=== PATIENT | male | born 1975 | race Caucasian/White ===

== ENCOUNTER → 2020-01-07 15:28 | Outpatient (CLI) | payer MEDICAID, SELFPAY ==
--- NOTE | 2020-01-07 15:31 | XR_ITS ---
PROCEDURE: XR FOOT WT BEARING RT 3V CLINICAL INDICATION: inversion of foot COMPARISON: No exams were available for comparison FINDINGS: There is normal alignment. No fracture or dislocation is evident. There is an old fracture of the mid to distal shaft of the 5th metatarsal with abundant callus formation. There are mild osteoarthritic changes of the 1st metatarsophalangeal joint. A bony hypertrophic changes are present involving the anterior aspect of the distal tibia. 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
--- NOTE | 2020-01-07 15:31 | XR_ITS ---
PROCEDURE: XR FOOT WT BEARING LT 3V CLINICAL INDICATION: inversion of foot Pain COMPARISON: No exams were available for comparison FINDINGS: There is an old fracture involving the 2nd metatarsal with a prominent callus formation. A bone plate is present at the proximal aspect of the 1st metatarsal. There is good alignment. There is a type 3 os navicularis. Moderate pes planus noted. IMPRESSION: pes planus with chronic changes Dictated by: Min Ortiz MD 01/07/2020 19:11 Electronically signed by Min Ortiz MD in [facility] 01/07/2020 19:12
== END ==
PROVIDERS: PCP Family Medicine; Visit Provider Podiatrist
DX: M79.672 Pain in left foot (principal); M79.671 Pain in right foot
CPT/HCPCS: 73630

== ENCOUNTER → 2020-07-07 08:50 | Outpatient (CLI) | payer MEDICAID, SELFPAY ==
--- NOTE | 2020-07-07 08:51 | XR_ITS ---
PROCEDURE: XR DEXA AXIAL SKELETON CLINICAL HISTORY: recurrent stress fx COMPARISON: No exams were available for comparison FINDINGS: The right hip BMD is 0.798 with a T-score of -1.0. The left hip BMD is 0.835 with a T-score of -0.7. The lumbar spine BMD is 1.046 with a T-score of -0.4. IMPRESSION: This patient is considered normal according to the [employer] criteria. Fracture risk is low. Dictated by: Min Ortiz MD 07/07/2020 10:00 Min Ortiz MD in [facility] 07/07/2020 10:00
== END ==
PROVIDERS: PCP Family Medicine; Visit Provider Family Medicine
DX: M84.374A Stress fracture, right foot, initial encounter for fracture (principal); M84.375A Stress fracture, left foot, initial encounter for fracture
CPT/HCPCS: 77080